=== PATIENT | female | born 1990 | race Native Hawaiian/Other Pacific Islander ===

== ENCOUNTER 2018-07-16 13:11 | Emergency (ER) | payer SELFPAY ==
--- NOTE | 2018-07-16 13:31 | Emergency Department Report ---
Chief Complaint: Abdominal Pain Stated Complaint: 12WKS /STOMACH PAIN Time Seen by Provider: 07/16/18 13:28 - HPI History of Present Illness: 12 w preg yesterday had discharge like water no vag bleeding co abd pain seen at clinic 04-18-18 lmp a1 went to clinic today but they sent her here because there is no doctor pmh seasonal allergy psh none rx tylenol prn allergy medication- Samira D cig neg etoh neg ro ab MSE completed MSE screening note: Focused history and physical exam performed. Due to findings the following was ordered: ED Disposition for MSE Condition: Stable Instructions: Abdominal Pain (ED)
[2018-07-16 13:32] VITALS: BP 122/61
[2018-07-16 14:07] LABS: Hematocrit 36.5 % (30.3-42.9); Hemoglobin 12.7 gm/dl (10.1-14.3); Mean Corpuscular HGB Conc 35 % (30-34); Mean Corpuscular Volume 94 fl (79-97); Platelet Count 253 K/mm3 (140-440); Red Blood Count 3.91 M/mm3 (3.65-5.03); Red Cell Distribution Width 12.7 % (13.2-15.2)
[2018-07-16 14:25] LABS: Bacteria,Urine 1+ /HPF (Negative); Bilirubin,Urine NEG (Negative); Blood,Urine NEG (Negative); Color,Urine Straw (Yellow); Protein,Urine <15 mg/dL mg/dL (Negative); Urobilinogen,Urine < 2.0 mg/dL (<2.0); WBC,Urine < 1.0 /HPF (0.0-6.0)
[2018-07-16 14:26] LABS: BUN/Creatinine Ratio 20; Blood Urea Nitrogen 6 mg/dL (7-17); Calcium 9.2 mg/dL (8.4-10.2); Hemolysis Index 3
--- NOTE | 2018-07-16 17:52 | Ultrasound Report ---
FINAL REPORT EXAM: US OB TRANSVAGINAL HISTORY: abd pain edc 9-1 TECHNIQUE: Grayscale and color doppler ultrasound imaging of the pelvis was performed transabdominal ly and transvaginally. PRIORS: None. FINDINGS: Uterus: The uterus is homogeneous in echogenicity without focal mass. The uterus measures 13.7 x 8.0 x 9.9 centimeters. An intrauterine gestational sac and fetus are present. heart rate was detect ed at 155 beats per minute. [place]-rump length is 6.8 centimeters corresponding with an estimated gest ational age of 13 weeks and 0 days with an MARIA DEL CARMEN of 01/21/2019. Ovaries: The ovaries are normal in echogenicity without cyst or mass. Normal flow is seen to the ovar ies. The right ovary measures 2.8 x 1.2 x 2.9 centimeters. The left ovary measures 2.3 x 1.5 x 2.7 ce ntimeters. Free fluid: None. IMPRESSION: Live intrauterine fetus measuring at 13 weeks and 0 days gestational age with an MARIA DEL CARMEN of 01/21/2019.
--- NOTE | 2018-07-16 17:52 | Ultrasound Report ---
FINAL REPORT EXAM: US OB < = 14 WEEKS FETUS HISTORY: abd pain edc 9-1 TECHNIQUE: Grayscale and color doppler ultrasound imaging of the pelvis was performed transabdomina lly and transvaginally. PRIORS: None. FINDINGS: Uterus: The uterus is homogeneous in echogenicity without focal mass. The uterus measures 13.7 x 8.0 x 9.9 centimeters. An intrauterine gestational sac and fetus are present. heart rate was detect ed at 155 beats per minute. [place]-rump length is 6.8 centimeters corresponding with an estimated gest ational age of 13 weeks and 0 days with an MARIA DEL CARMEN of 01/21/2019. Ovaries: The ovaries are normal in echogenicity without cyst or mass. Normal flow is seen to the ovar ies. The right ovary measures 2.8 x 1.2 x 2.9 centimeters. The left ovary measures 2.3 x 1.5 x 2.7 ce ntimeters. Free fluid: None. IMPRESSION: Live intrauterine fetus measuring at 13 weeks and 0 days gestational age with an MARIA DEL CARMEN of 01/21/2019.
--- NOTE | 2018-07-16 18:16 | Emergency Department Report ---
ED Female HPI - General Chief complaint: Abdominal Pain Stated complaint: 12WKS /STOMACH PAIN Time Seen by Provider: 07/16/18 13:28 Source: patient, family Mode of arrival: Ambulatory Limitations: Language Barrier - History of Present Illness Initial comments: Patient is a 28-year-old female who is approximately 12 weeks who went to her [facility] today at life cycle secondary to feeling "a lot of water" passed through the vagina earlier today. Patient started also having some lower abdominal cramping starting last night. Patient denies any vaginal bleeding. Patient states she was not urinating at the time she felt the gush of water. According to the patient she was sent here because the ELECTRIC KNIFE OPERATOR was not present at that time. - Related Data Allergies Allergy/AdvReac Type Severity Reaction Status Date / Time No Known Allergies Allergy Verified 07/16/18 13:32 ED Review of Systems ROS: Stated complaint: 12WKS /STOMACH PAIN Other details as noted in HPI Comment: All other systems reviewed and negative ED Past Medical Hx - Past Medical History Previous Medical History?: No - Surgical History Past Surgical History?: No - Social History Smoking Status: Never Smoker Substance Use Type: None ED Physical Exam - General Limitations: Language Barrier General appearance: alert, in no apparent distress - Head Head exam: Present: atraumatic, normocephalic - Eye Eye exam: Present: normal appearance - ENT ENT exam: Present: mucous membranes moist - Neck Neck exam: Present: normal inspection - Respiratory Respiratory exam: Present: normal lung sounds bilaterally. Absent: respiratory distress, wheezes, rales, rhonchi - Cardiovascular Cardiovascular Exam: Present: regular rate, normal rhythm. Absent: systolic murmur, diastolic murmur, rubs, gallop - GI/Abdominal GI/Abdominal exam: Present: soft, tenderness, normal bowel sounds. Absent: distended, guarding, rebound, rigid - Rectal Rectal exam: Present: deferred - External exam: Present: other (deferred) - Extremities Exam Extremities exam: Present: normal inspection - Back Exam Back exam: Present: normal inspection - Neurological Exam Neurological exam: Present: alert, oriented X3 - Psychiatric Psychiatric exam: Present: normal affect, normal mood - Skin Skin exam: Present: warm, dry, intact, normal color. Absent: rash ED Course Vital Signs 07/16/18 13:29 Temperature 98.2 F Pulse Rate 77 Respiratory 16 Rate Blood Pressure 122/61 O2 Sat by Pulse 99 Oximetry ED Medical Decision Making - Lab Data Result diagrams: 07/16/18 13:38 07/16/18 13:38 Lab Results 07/16/18 07/16/18 07/16/18 Range/Units 13:38 13:38 13:38 WBC 9.8 (4.5-11.0) K/mm3 RBC 3.91 (3.65-5.03) M/mm3 Hgb 12.7 (10.1-14.3) gm/dl Hct 36.5 (30.3-42.9) % MCV 94 (79-97) fl MCH 33 H (28-32) pg MCHC 35 H (30-34) % RDW 12.7 L (13.2-15.2) % Plt Count 253 (140-440) K/mm3 Sodium 137 (137-145) mmol/L Potassium 3.6 (3.6-5.0) mmol/L Chloride 98.4 (98-107) mmol/L Carbon Dioxide 21 L (22-30) mmol/L Anion Gap 21 mmol/L BUN 6 L (7-17) mg/dL Creatinine 0.3 L (0.7-1.2) mg/dL Estimated GFR > 60 ml/min BUN/Creatinine Ratio 20 % Glucose 73 (65-100) mg/dL Calcium 9.2 (8.4-10.2) mg/dL HCG, Quant 25470 H (0-4) mIU/mL Urine Color (Yellow) Urine Turbidity (Clear) Urine pH (5.0-7.0) Ur Specific [place] (1.003-1.030) Urine Protein (Negative) mg/dL Urine Glucose (UA) (Negative) mg/dL Urine Ketones (Negative) mg/dL Urine Blood (Negative) Urine Nitrite (Negative) Urine Bilirubin (Negative) Urine Urobilinogen (<2.0) mg/dL Ur Leukocyte Esterase (Negative) Urine WBC (Auto) (0.0-6.0) /HPF Urine RBC (Auto) (0.0-6.0) /HPF U Epithel Cells (Auto) (0-13.0) /HPF Urine Bacteria (Auto) (Negative) /HPF Blood Type 07/16/18 07/16/18 Range/Units 13:38 13:54 WBC (4.5-11.0) K/mm3 RBC (3.65-5.03) M/mm3 Hgb (10.1-14.3) gm/dl Hct (30.3-42.9) % MCV (79-97) fl MCH (28-32) pg MCHC (30-34) % RDW (13.2-15.2) % Plt Count (140-440) K/mm3 Sodium (137-145) mmol/L Potassium (3.6-5.0) mmol/L Chloride (98-107) mmol/L Carbon Dioxide (22-30) mmol/L Anion Gap mmol/L BUN (7-17) mg/dL Creatinine (0.7-1.2) mg/dL Estimated GFR ml/min BUN/Creatinine Ratio % Glucose (65-100) mg/dL Calcium (8.4-10.2) mg/dL HCG, Quant (0-4) mIU/mL Urine Color Straw (Yellow) Urine Turbidity Clear (Clear) Urine pH 7.0 (5.0-7.0) Ur Specific [place] 1.005 (1.003-1.030) Urine Protein <15 mg/dl (Negative) mg/dL Urine Glucose (UA) Neg (Negative) mg/dL Urine Ketones Tr (Negative) mg/dL Urine Blood Neg (Negative) Urine Nitrite Neg (Negative) Urine Bilirubin Neg (Negative) Urine Urobilinogen < 2.0 (<2.0) mg/dL Ur Leukocyte Esterase Neg (Negative) Urine WBC (Auto) < 1.0 (0.0-6.0) /HPF Urine RBC (Auto) 2.0 (0.0-6.0) /HPF U Epithel Cells (Auto) 1.0 (0-13.0) /HPF Urine Bacteria (Auto) 1+ (Negative) /HPF Blood Type A POSITIVE - Radiology Data Ultrasound transvaginal shows a live IUP at 13 weeks 0 days. Patient's fetus has a heart rate of 155 and is no acute abdomen now is seen on ultrasound. - Medical Decision Making Patient may have had this logic of her mucous plug and some passage of amniotic fluid in the vagina. So that there is no increase of contamination no pelvic exam was performed. Patient's will be sent home with bed rest and pelvic rest and follow with her E[employer]NIFE [employer]PER[employer]. She's been instructed to return to the emergency department if her pain worsens or she begins to bleed. Critical care attestation.: If time is entered above; I have spent that time in minutes in the direct care of this critically ill patient, excluding procedure time. ED Disposition Clinical Impression: Threatened miscarriage Disposition: DC- TO HOME OR SELFCARE Is pt being admited?: No Does the pt Need Aspirin: No Condition: Stable Instructions: Threatened Miscarriage (ED) Time of Disposition: 18:18 Print Language: POLISH
== END 2018-07-16 18:34 | disposition home or self-care (01) ==
LOC: EDBD → ED 13:11
DX: O20.0 Threatened abortion (principal); Z3A.12 12 weeks gestation of pregnancy
CPT/HCPCS: 36415; 76801; 76817; 80048; 81001; 84702; 85027; 86900; 86901

== ENCOUNTER 2019-01-03 14:13 | Outpatient (CLI) | payer OTHER ==
[2019-01-03 14:55] VITALS: BP 121/74
[2019-01-03 15:29] LABS: Bacteria,Urine 1+ /HPF (Negative); Bilirubin,Urine NEG (Negative); Blood,Urine NEG (Negative); Color,Urine Yellow (Yellow); Protein,Urine <15 mg/dL mg/dL (Negative); Urobilinogen,Urine < 2.0 mg/dL (<2.0)
--- NOTE | 2019-01-03 16:30 | Ultrasound Report ---
ULTRASOUND BIOPHYSICAL PROFILE ULTRASOUND OB LIMITED INDICATION: well being TECHNIQUE: Transabdominal ultrasound imaging. COMPARISON: None FINDINGS: breathing movement = 2 Gross body movement = 2 tone = 2 Qualitative amniotic fluid volume = 2 Total biophysical score = 8/8 Amniotic fluid index is 9.2 cm. Presentation is cephalic. heart rate is 118 beats per minute. IMPRESSION: biophysical profile equals 8/8. Signer Name: Luis Eduardo Calloway Jr, MD Signed: 01/03/2019 4:26 PM Workstation Name: [id number]
== END 2019-01-03 16:10 | disposition home or self-care (01) ==
LOC: TRG 14:13
PROVIDERS: ATTEND Obstetrics & Gynecology
DX: O47.03 False labor before 37 completed weeks of gestation, third trimester (principal); O24.419 Gestational diabetes mellitus in pregnancy, unspecified control; Z3A.37 37 weeks gestation of pregnancy
CPT/HCPCS: 59025; 76815; 76819; 81001; 82962

== ENCOUNTER 2019-01-14 01:38 | Inpatient (IN) | payer OTHER ==
[2019-01-14] MEDS ORDERED: LACTATED RINGERS 1,000 ML ONE (02:09)
[2019-01-14] MEDS ORDERED: SUBLIMAZE IV PRN (02:54)
[2019-01-14] MEDS ORDERED: BRETHINE IVP PRN (02:54)
[2019-01-14] MEDS ORDERED: BRETHINE SUB-Q PRN (02:54)
[2019-01-14] MEDS ORDERED: MINERAL OIL PO PRN (02:54)
[2019-01-14] MEDS ORDERED: AMPICILLIN/NS 2 GM/100 ML 2 GM/100 ML BAG IV ONE ×2 (02:54→02:59)
[2019-01-14] MEDS ORDERED: STADOL IV PRN (02:54)
[2019-01-14] MEDS ORDERED: XYLOCAINE 2% INFILTRATI ONE (02:54)
[2019-01-14] MEDS ORDERED: PITOCin/NS 30 UNIT/500ML 30 UNITS/500 ML BAG IV SCH (03:00)
[2019-01-14] MEDS ORDERED: PITOCin/NS 20 UNIT/1000ML DRIP 20 UNITS/1,000 ML BAG IV SCH (03:00)
[2019-01-14] MEDS ORDERED: LACTATED RINGERS 1,000 ML IV SCH (03:00)
[2019-01-14 03:07] LABS: Hematocrit 38.6 % (30.3-42.9); Hemoglobin 13.2 gm/dl (10.1-14.3); Mean Corpuscular HGB Conc 34 % (30-34); Mean Corpuscular Volume 95 fl (79-97); Platelet Count 177 K/mm3 (140-440); Red Blood Count 4.05 M/mm3 (3.65-5.03); Red Cell Distribution Width 13.6 % (13.2-15.2)
--- NOTE | 2019-01-14 03:57 | History and Physical Report ---
History of Present Illness Date of examination: 01/14/19 Chief complaint: Labor History of present illness: Pt is a 29yo HF EDC 01/23/19; EGA 38 5/7 weeks presents to L&D complaining of RUC's q 3-4 mins. She received care at [facility], but records are not available and GBS is unknown. Past History Past Medical History: no pertinent history Past Surgical History: no surgical history Family/Genetic History: none Social history: no significant social history, single - Obstetrical History Expected Date of Delivery: 01/23/19 Actual Gestation: 38 Week(s) 5 Day(s) : 3 Medications and Allergies Allergies Allergy/AdvReac Type Severity Reaction Status Date / Time No Known Allergies Allergy Verified 07/16/18 13:32 Active Meds: Active Medications Butorphanol Tartrate (Stadol) 2 mg IV Q2H PRN PRN Reason: Pain , Severe (7-10) Ephedrine Sulfate (Ephedrine Sulfate) 10 mg IV Q2M PRN PRN Reason: Hypotension Fentanyl (Sublimaze) 100 mcg IV Q2H PRN PRN Reason: Labor Pain Oxytocin/Sodium Chloride (Pitocin/Ns 20 Unit/1000ml Drip) 20 units in 1,000 mls @ 125 mls/hr IV DIRECT HUE Oxytocin/Sodium Chloride (Pitocin/Ns 30 Unit/500ml) 30 units in 500 mls @ 1 mls/hr IV TITR HUE; Protocol Lactated Ringer's (Lactated Ringers) 1,000 mls @ 125 mls/hr IV DIRECT HUE Ampicillin Sodium (Ampicillin/Ns 2 Gm/100 Ml) 2 gm in 100 mls @ 100 mls/hr IV ONCE ONE; Protocol Stop: 01/14/19 03:53 Mineral Oil (Mineral Oil) 30 ml PO QHS PRN PRN Reason: Constipation Terbutaline Sulfate (Brethine) 0.25 mg SUB-Q ONCE PRN PRN Reason: Hyperstimulation/Hypertonicity Terbutaline Sulfate (Brethine) 0.25 mg IVP ONCE PRN PRN Reason: Hyperstimulation/Hypertonicity Review of Systems All systems: negative - Vital Signs Vital signs: Vital Signs Pulse BP 82 128/77 01/14/19 03:45 01/14/19 03:45 Temp Pulse Resp BP Pulse Ox 82 128/77 01/14/19 03:45 01/14/19 03:45 - Physical Exam Breasts: Positive: deferred Cardiovascular: Regular rate Lungs: Positive: Clear to auscultation Abdomen: Positive: normal appearance Genitourinary (Female): Positive: normal external genitalia Vagina: Positive: normal moisture Uterus: Positive: enlarged Extremities: Positive: normal - Obstetrical FHR: category 1 Uterine Contraction Monitor Mode: External Cervical Dilatation: 10 Cervical Effacement Percentage: 100 station: +2 Uterine Contraction Pattern: Regular Uterine Tone Measurement Phase: Contraction Uterine Contraction Intensity: Strong/Firm Results Result Diagrams: 01/14/19 02:30 Abnormal lab results 01/14/19 Range/Units 02:30 MCH 33 H (28-32) pg All other labs normal. Assessment and Plan - Patient Problems (1) 38 weeks gestation of Onset Date: 01/14/19 Current Visit: Yes Status: Acute Plan to address problem: A: IUP @ 38 5/7 weeks in labor Unknown GBS P: Admit to L&D for expectant vaginal delivery Obtain records
[2019-01-14] MEDS ORDERED: BENADRYL PO PRN (03:59)
[2019-01-14] MEDS ORDERED: TYLENOL PO PRN (03:59)
[2019-01-14] MEDS ORDERED: DULCOLAX PR PRN (03:59)
[2019-01-14] MEDS ORDERED: PHENERGAN PR PRN (03:59)
[2019-01-14] MEDS ORDERED: NORCO 5/325 PO PRN (03:59)
[2019-01-14] MEDS ORDERED: LANSINOH TP PRN (03:59)
[2019-01-14] MEDS ORDERED: TUCKS PAD TP PRN (03:59)
[2019-01-14] MEDS ORDERED: ZOFRAN IV PRN (03:59)
[2019-01-14] MEDS ORDERED: MILK OF MAGNESIA PO PRN (03:59)
[2019-01-14] MEDS ORDERED: PHENERGAN PO PRN (03:59)
--- NOTE | 2019-01-14 03:59 | Procedure Note ---
OB Delivery Note - Delivery Date of Delivery: 01/14/19 Surgeon: HEENA HUMPHREY Estimated blood loss: 200cc - Vaginal Delivery presentation: vertex Delivery position: OA Intrapartum events: precipitous labor- <3hr Delivery induction: none Delivery augmentation: rupture of membranes Delivery monitor: external FHT, external uterine Route of delivery: Delivery placenta: spontaneous Delivery cord: 3 umbilical vessels Episiotomy: none Delivery laceration: 2nd degree Delivery repair: vicryl Anesthesia: local Delivery comments: Infant delivered OA and placed on Mom's chest for [id number] bonding and delayed cord clamping, cut by Dad - A at 1 minute: 8 at 5 minutes: 9 Infant Gender: Female (3738gms)
[2019-01-14] MEDS ORDERED: SODIUM CHLORIDE FLUSH SYRINGE 10 ML IV NR (04:00)
[2019-01-14] MEDS: IBUPROFEN PO SCH ×4 (04:54→23:48)
[2019-01-14] MEDS: FEOSOL PO SCH ×2 (09:38→21:32)
[2019-01-14] MEDS: COLACE PO SCH ×2 (09:39→21:32)
[2019-01-14] MEDS: PRENATAL VITAMIN PO SCH (09:39)
[2019-01-14 15:41] LABS: Hematocrit 32.5 % (30.3-42.9); Hemoglobin 11.5 gm/dl (10.1-14.3)
[2019-01-15] MEDS: IBUPROFEN PO SCH ×3 (05:37→17:37)
[2019-01-15] MEDS ORDERED: M-M-R II VACCINE SUB-Q ONE (06:00)
[2019-01-15] MEDS ORDERED: BOOSTRIX IM ONE (06:00)
[2019-01-15] MEDS: COLACE PO SCH (10:07)
[2019-01-15] MEDS: FEOSOL PO SCH (10:07)
[2019-01-15] MEDS: PRENATAL VITAMIN PO SCH (10:07)
--- NOTE | 2019-01-15 11:20 | Progress Note ---
Assessment and Plan A: day 1 S/P spontaneous vaginal delivery. P: Continue current management. Anticipate discharge home tomorrow if patient continues to do well. Subjective - Subjective Date of service: 01/15/19 Principal diagnosis: day 1 S/P spontaneous vaginal delivery Interval history: day 1 S/P spontaneous vaginal delivery. Doing well. Patient reports a small amount of lochia. She is voiding without difficulty. Ambulating well. Tolerating a regular diet without nausea or vomiting. Patient denies headache, chest pain, cough, dizziness, shortness of breath, leg pain, abdominal pain, or heavy vaginal bleeding. Patient reports: appetite normal, voiding normally, pain well controlled, flatus, ambulating normally, no dizzy ambulation, no nauseated [place]: doing well Objective - Vital Signs Latest vital signs: Vital Signs Temp Pulse Resp BP Pulse Ox 01/15/19 08:40 97.8 F 66 18 105/63 99 01/15/19 06:37 18 01/15/19 05:37 18 01/15/19 00:48 18 01/14/19 23:55 97.4 F L 20 126/77 01/14/19 23:48 18 01/14/19 22:32 18 01/14/19 21:32 18 01/14/19 16:39 98.0 F 67 18 114/76 98 01/14/19 12:56 98.0 F 68 18 125/70 96 Intake and Output 01/14/19 01/15/19 01/15/19 23:59 07:59 15:59 Intake Total 1200 240 Output Total 1450 Balance -250 240 Intake: Oral 240 Intake, Free Water 960 240 Output: Urine 1450 Void 1450 Other: Total, Intake Amount 240 Total, Output Amount 750 # Voids Void 1 1 - Exam Abdomen: Present: normal appearance, soft. Absent: distention, tenderness, guarding, rigidity Uterus: Present: normal, firm, fundal height below umbilicus. Absent: bogginess, tenderness Extremities: Present: normal. Absent: tenderness, edema
[2019-01-16] MEDS: IBUPROFEN PO SCH ×3 (05:09→12:52)
[2019-01-16] MEDS: COLACE PO SCH ×2 (10:58)
[2019-01-16] MEDS: FEOSOL PO SCH ×2 (10:58)
--- NOTE | 2019-01-16 14:49 | Progress Note ---
Assessment and Plan A: day 2 S/P spontaneous vaginal delivery. P: Discharge patient home today. Discussed with patient discharge instructions and warning signs. Advised patient to continue taking her vitamins and iron supplements at home. Advised patient to avoid intercourse, lifting and heavy housework, driving, tub baths (patient may take shower). Advised patient to return promptly if any problems. Advised patient to follow up at OB clinic in 6 weeks. Patient voiced understanding of all instructions. Subjective - Subjective Date of service: 01/16/19 Principal diagnosis: day 2 S/P spontaneous vaginal delivery Interval history: day 2 S/P spontaneous vaginal delivery. Doing well. Wants to go home today. Patient reports a small amount of lochia. She is voiding without difficulty. Ambulating well. Tolerating a regular diet without nausea or vomiting. Patient denies headache, chest pain, cough, dizziness, shortness of breath, leg pain, abdominal pain, or heavy vaginal bleeding. Patient reports: appetite normal, voiding normally, pain well controlled, flatus, ambulating normally, no dizzy ambulation, no nauseated : doing well Objective - Vital Signs Latest vital signs: Vital Signs Temp Pulse Resp BP Pulse Ox 01/16/19 12:52 18 01/16/19 08:19 98.0 F 01/16/19 08:05 75 18 105/65 98 01/16/19 06:09 18 01/16/19 05:09 18 01/16/19 01:00 18 01/16/19 00:00 18 01/15/19 23:43 97.9 F 61 20 126/80 98 01/15/19 16:05 99.2 F 78 18 111/67 98 Intake and Output 01/15/19 01/16/19 01/16/19 23:59 07:59 15:59 Intake Total 1080 120 Balance 1080 120 Intake: Oral 360 Intake, Free Water 720 120 Other: Total, Intake Amount 120 # Voids Void 1 1 1 - Exam Cardiovascular: Present: Regular rate, Normal S1, Normal S2 Lungs: Present: Clear to auscultation Abdomen: Present: normal appearance, soft. Absent: distention, tenderness, g uarding, rigidity Uterus: Present: normal, firm, fundal height below umbilicus. Absent: bogginess, tenderness Extremities: Present: normal. Absent: tenderness, edema
--- NOTE | 2019-01-16 14:51 | Discharge Summary ---
Providers - Providers Date of Admission: 01/14/19 04:31 Date of discharge: 01/16/19 Attending physician: CECI EPPS MD None Primary care physician: CECI EPPS MD Hospitalization Reason for admission: active labor Delivery: Episiotomy: none Laceration: 2nd degree Other procedures: none complications: none Discharge diagnosis: IUP at term delivered [place] baby: female Pertinent studies: Labs Hospital course: Normal hospital course Condition at discharge: Good Disposition: DC-01 TO HOME OR SELFCARE - Discharge Diagnoses (1) Term delivered Status: Acute Plan - Provider Discharge Summary Activity: routine, no sex for 6 weeks, no heavy lifting 4 weeks, no strenuous exercise Diet: routine Instructions: routine Additional instructions: Please continue to take your vitamins and iron supplements at home. Call your doctor immediately for: * Fever > 100.5 * Heavy vaginal bleeding ( >1 pad per hour) * Severe persistent headache * Shortness of breath * Reddened, hot, painful area to leg or breast - Follow up plan Follow up: CECI EPPS MD [Primary Care Provider] - 6 Weeks
[2019-01-16 17:04] VITALS: BP 111/65
== END 2019-01-16 18:26 | disposition home or self-care (01) | DRG 807 ==
LOC: TRG 01:38 → LD 04:28 → TRG 04:31 → OB 05:26
PROVIDERS: ADMIT Obstetrics & Gynecology; ATTEND Obstetrics & Gynecology
PROC: 10E0XZZ Delivery of Products of Conception, External Approach (ICD-10-PCS; principal; 2019-01-14)
PROC: 0KQM0ZZ Repair Perineum Muscle, Open Approach (ICD-10-PCS; 2019-01-14)
PROC: 3E0234Z Introduction of Serum, Toxoid and Vaccine into Muscle, Percutaneous Approach (ICD-10-PCS; 2019-01-15)
DX: O62.3 Precipitate labor (principal); O70.1 Second degree perineal laceration during delivery; Z37.0 Single live birth; Z23 Encounter for immunization; Z3A.38 38 weeks gestation of pregnancy
CPT/HCPCS: 36415; 85014; 85018; 85027; 86592; 86850; 86900; 86901; G0378; J0290; J2590; J7120